=== PATIENT | male | born 1940 | race Caucasian/White ===

== ENCOUNTER 2022-08-21 13:02 | Inpatient (IN) | payer MEDICARE ==
[2022-08-21 14:29] LABS: #Basophils 0.1 thou/uL (0.0-0.2); #Eosinphils 0.3 thou/uL (0.0-0.7); #Monocytes 0.6 thou/uL (0.11-0.59); #Neutrophils 5.4 thou/uL (1.40-6.50); %Basophils 0.8 % (0.0-1.0); %Eosinophils 2.7 % (0.0-10.0); %Monocytes 6.2 % (0.0-10.0); %Neutrophils 55.8 % (42.0-75.0); Hemoglobin 12.8 g/dL (14.0-18.0); Mean Corpuscular HGB CONC 30.9 g/dL (32.0-36.0); Mean Corpuscular Hemoglobin 29.6 pg (27.0-31.0); Mean Corpuscular Volume 95.6 fl (78.0-98.0); Mean Platelet Volume 10.3 fL (7.4-10.4); Platelet Count 210 10x3/uL (130-400); RBC Distribution Width 14.1 % (11.5-14.5); Red Blood Cell (RBC) Count 4.33 mill/uL (4.70-6.10); White Blood Cell (WBC) Count 9.7 10x3/uL (4.8-10.8)
[2022-08-21 14:53] LABS: ALT (SGPT) 18 U/L (8-55); AST (SGOT) 24 U/L (5-34); Albumin 3.7 g/dL (3.4-4.8); Alkaline Phosphatase 49 U/L (40-110); Anion Gap 13 mmol/L (10-20); BUN (Urea Nitrogen) 21 mg/dL (8.4-25.7); Bilirubin, Total 0.5 mg/dL (0.2-1.2); Calc. Creatinine Clearance 0 mL/min (70-130); Calcium 9.2 mg/dL (7.8-10.44); Carbon Dioxide 20 mmol/L (23-31); Chloride 107 mmol/L (98-107); Estimated GFR 69; Globulin 3.5 g/dL (2.4-3.5); Glucose 100 mg/dL (83-110); Potassium 4.3 mmol/L (3.5-5.1); Protein, Total 7.2 g/dL (5.8-8.1); Sodium 136 mmol/L (136-145)
[2022-08-21] MEDS ORDERED: Ondansetron PF 4 MG/2 ML Vial IVP PRN (17:47)
[2022-08-21] MEDS ORDERED: Calcium Carbonate 500 MG ChewTAB PO PRN (17:47)
[2022-08-21] MEDS ORDERED: Guaifenesin DM 100-10/5 ML UDCUP PO PRN (17:47)
[2022-08-21] MEDS ORDERED: Acetaminophen 325 MG TAB PO PRN (17:47)
[2022-08-21] MEDS: Sodium Chloride 0.9% 1,000 ML IV SCH (18:10)
[2022-08-21 18:16] LABS: Hemoglobin 12.2 g/dL (14.0-18.0)
[2022-08-21] MEDS: Gabapentin 300 MG CAP PO SCH (21:12)
[2022-08-21] MEDS: Donepezil HCl 10 MG TAB PO SCH (21:12)
[2022-08-21] MEDS: Simvastatin 10 MG TAB PO SCH (21:12)
[2022-08-22 00:44] VITALS: BMI 31.8
[2022-08-22 05:22] LABS: Hemoglobin 10.8 g/dL (14.0-18.0)
[2022-08-22 05:37] LABS: ALT (SGPT) 16 U/L (8-55); AST (SGOT) 20 U/L (5-34); Albumin 3.4 g/dL (3.4-4.8); Alkaline Phosphatase 42 U/L (40-110); Anion Gap 9 mmol/L (10-20); BUN (Urea Nitrogen) 17 mg/dL (8.4-25.7); Bilirubin, Total 0.6 mg/dL (0.2-1.2); Calc. Creatinine Clearance 86 mL/min (70-130); Calcium 8.5 mg/dL (7.8-10.44); Carbon Dioxide 24 mmol/L (23-31); Chloride 107 mmol/L (98-107); Estimated GFR 75; Globulin 2.9 g/dL (2.4-3.5); Glucose 99 mg/dL (83-110); Potassium 4.1 mmol/L (3.5-5.1); Protein, Total 6.3 g/dL (5.8-8.1); Sodium 136 mmol/L (136-145)
[2022-08-22] MEDS ORDERED: Carvedilol 3.125 MG TAB PO SCH (08:00)
[2022-08-22] MEDS: Tamsulosin HCl 0.4 MG CAP PO SCH (08:26)
[2022-08-22] MEDS: Gabapentin 300 MG CAP PO SCH ×3 (08:26→20:48)
[2022-08-22] MEDS ORDERED: Carvedilol 6.25 MG TAB PO SCH (16:00)
[2022-08-22] MEDS: Sodium Chloride 0.9% 1,000 ML IV SCH (16:07)
[2022-08-22 17:00] LABS: Hemoglobin 11.2 g/dL (14.0-18.0)
[2022-08-22] MEDS: Donepezil HCl 10 MG TAB PO SCH (20:48)
[2022-08-22] MEDS: Simvastatin 10 MG TAB PO SCH (20:52)
[2022-08-22] MEDS ORDERED: Melatonin 3 MG TAB PO SCH (21:00)
[2022-08-22 22:41] LABS: Hemoglobin 10.6 g/dL (14.0-18.0)
[2022-08-23 04:46] LABS: #Basophils 0.1 thou/uL (0.0-0.2); #Eosinphils 0.3 thou/uL (0.0-0.7); #Monocytes 0.8 thou/uL (0.11-0.59); #Neutrophils 5.2 thou/uL (1.40-6.50); %Basophils 0.6 % (0.0-1.0); %Lymphocytes 34.2 % (21.0-51.0); %Neutrophils 53.8 % (42.0-75.0); Hemoglobin 10.8 g/dL (14.0-18.0); Mean Corpuscular HGB CONC 32.4 g/dL (32.0-36.0); Mean Corpuscular Hemoglobin 29.7 pg (27.0-31.0); Mean Corpuscular Volume 91.5 fl (78.0-98.0); Mean Platelet Volume 9.8 fL (7.4-10.4); Platelet Count 193 10x3/uL (130-400); RBC Distribution Width 14.2 % (11.5-14.5); Red Blood Cell (RBC) Count 3.64 mill/uL (4.70-6.10); White Blood Cell (WBC) Count 9.7 10x3/uL (4.8-10.8)
[2022-08-23 05:08] LABS: Anion Gap 9 mmol/L (10-20); BUN (Urea Nitrogen) 18 mg/dL (8.4-25.7); Calc. Creatinine Clearance 84 mL/min (70-130); Calcium 8.6 mg/dL (7.8-10.44); Carbon Dioxide 25 mmol/L (23-31); Chloride 107 mmol/L (98-107); Estimated GFR 72; Glucose 97 mg/dL (83-110); Potassium 3.9 mmol/L (3.5-5.1); Sodium 137 mmol/L (136-145)
[2022-08-23] MEDS ORDERED: Carvedilol 3.125 MG TAB PO SCH (09:00)
[2022-08-23] MEDS: Gabapentin 300 MG CAP PO SCH ×2 (09:28→14:58)
[2022-08-23] MEDS: Tamsulosin HCl 0.4 MG CAP PO SCH (09:29)
[2022-08-23 12:54] VITALS: BP 90/51; TEMP 98.3
== END 2022-08-23 16:59 | disposition home or self-care (01) | DRG 378 ==
LOC: ERS 13:02 → ERHOLD 17:02 → 2NO 19:54 → OBSVTOIN 08-22 12:17
PROVIDERS: ADMIT Internal Medicine; ATTEND Internal Medicine
DX: K62.5 Hemorrhage of anus and rectum (principal); D62 Acute posthemorrhagic anemia; I48.20 Chronic atrial fibrillation, unspecified; I10 Essential (primary) hypertension; E11.9 Type 2 diabetes mellitus without complications; E78.5 Hyperlipidemia, unspecified; F03.90 Unspecified dementia, unspecified severity, without behavioral disturbance, psychotic disturbance, mood disturbance, and anxiety; Z80.49 Family history of malignant neoplasm of other genital organs; Z90.89 Acquired absence of other organs; Z87.442 Personal history of urinary calculi; Z79.01 Long term (current) use of anticoagulants; Z87.891 Personal history of nicotine dependence; Z82.49 Family history of ischemic heart disease and other diseases of the circulatory system; Z80.42 Family history of malignant neoplasm of prostate; C61 Malignant neoplasm of prostate
CPT/HCPCS: 36415; 36416; 80048; 80053; 83880; 84484; 85014; 85018; 85025; 85730; 86850; 86900; 86901; 93005; 96360; 96361; G0378; J7050

== ENCOUNTER 2023-02-04 15:03 | Outpatient (CLI) | payer MEDICARE ==
[2023-02-04 16:19] LABS: Hematocrit 38.9 % (38.8-50.0); Hemoglobin 12.4 g/dL (13.5-17.5); Mean Corpuscular HGB CONC 31.9 g/dL (32.0-36.0); Mean Corpuscular Hemoglobin 26.8 pg (27.0-33.0); Mean Platelet Volume 9.4 fl (7.4-10.4); Platelet Count 321 10x3/uL (150-450); RBC Distribution Width 17.7 % (11.5-14.5); Red Blood Cell (RBC) Count 4.63 10x6/uL (4.32-5.72); White Blood Cell (WBC) Count 13.3 10x3/uL (3.5-10.5)
[2023-02-04 16:30] LABS: Bilirubin Neg (Negative); Blood, Urine 250 (Negative); Clarity Cloudy (Clear); Glucose, Urine (Dipstick) Normal (Negative); Ketone, Urine Negative (Negative); Leukocyte 500 (Negative); Nitrite Negative (Negative); Protein, Urine (Dipstick) 100 mg/dl (Neg-Trace); Specific Gravity, Urine 1.025 (1.005-1.030); Urobilinogen Normal mg/dL (Less than 2)
[2023-02-04 16:34] LABS: PTT 28.5 sec (22.0-33.0); Prothrombin Time 10.4 sec (9.5-12.1)
[2023-02-04 16:38] LABS: Anion Gap 16 mmol/L (10-20); BUN (Urea Nitrogen) 22 mg/dL (8.4-25.7); Calc. Creatinine Clearance 0 mL/min (70-130); Calcium 9.1 mg/dL (7.8-10.44); Carbon Dioxide 24 mmol/L (23-31); Chloride 106 mmol/L (98-107); Estimated GFR 57; Glucose 103 mg/dL (83-110); Potassium 4.8 mmol/L (3.5-5.1); Sodium 141 mmol/L (136-145)
[2023-02-04 16:57] LABS: RBC/HPF 21-50 HPF (0-3); WBC/HPF Greater than 50 HPF (0-3)
[2023-02-04 16:59] LABS: Bacteria/HPF 3+ HPF (None Seen); Renal Epithelial 0-3 HPF (None Seen)
== END 2023-02-04 15:04 | disposition home or self-care (01) ==
LOC: LABBT 15:03
PROVIDERS: ATTEND Urology
DX: Z01.818 Encounter for other preprocedural examination (principal); N35.914 Unspecified anterior urethral stricture, male
CPT/HCPCS: 80048; 81001; 85027; 85610; 85730; 87086; 93005; 93010

== ENCOUNTER 2023-02-08 08:46 | Day surgery (SDC) | payer MEDICARE ==
[2023-02-04 15:47] VITALS: BMI 30.7
[2023-02-08] MEDS ORDERED: fentaNYL PF 100 MCG/2 ML SYRINGE ONE (12:01)
[2023-02-08] MEDS ORDERED: PROPOFOL 20 ML ONE (12:01)
[2023-02-08] MEDS ORDERED: Lidocaine 1% PF 5 ML VIAL ONE ×2 (12:02→12:47)
[2023-02-08] MEDS ORDERED: LevoFLOXacin 500 mg/D5W 100 ML BAG ONE (12:11)
[2023-02-08] MEDS ORDERED: Triamcinolone 40 MG/ML VIAL ONE (12:37)
[2023-02-08] MEDS ORDERED: PHENYLEPHRINE-NS 100 MCG/ML 10 ML SYRINGE ONE ×2 (12:47→12:54)
[2023-02-08] MEDS ORDERED: PROPOFOL 200 MG/20 ML VIAL ONE (12:47)
[2023-02-08] MEDS ORDERED: Ondansetron PF 4 MG/2 ML Vial ONE (13:02)
[2023-02-08] MEDS ORDERED: ePHEDrine Sulfate 50 MG/10 ML VIAL ONE (13:07)
[2023-02-08] MEDS ORDERED: Oxybutynin 5 MG TAB ONE (13:47)
[2023-02-08] MEDS ORDERED: Phenazopyridine HCl 100 MG TAB ONE (13:47)
== END 2023-02-08 14:55 | disposition home or self-care (01) ==
LOC: SDC 08:46
PROVIDERS: ATTEND Urology
PROC: 0T7D8ZZ Dilation of Urethra, Via Natural or Artificial Opening Endoscopic (ICD-10-PCS; principal; 2023-02-08)
DX: N35.812 Other bulbous urethral stricture, male (principal); N35.813 Other membranous urethral stricture, male; I10 Essential (primary) hypertension; E78.5 Hyperlipidemia, unspecified; I48.91 Unspecified atrial fibrillation
CPT/HCPCS: J1956; J2405; J2704; J3301

== ENCOUNTER 2024-01-28 08:03 | Inpatient (IN) | payer MEDICARE ==
[2024-01-28 10:54] LABS: #Basophils 0.04 10x3/uL (0.0-0.2); #Eosinophils Less than 0.03 10x3/uL (0.0-0.7); %Basophils 0.2 % (0.0-1.0); %Lymphocytes 5.7 % (21.0-51.0); %Monocytes 4.1 % (0.0-10.0); %Neutrophils 89.3 % (42.0-75.0); Hematocrit 43.6 % (42.0-52.0); Hemoglobin 14.1 g/dL (14.0-18.0); Mean Corpuscular HGB CONC 32.3 g/dL (32.0-36.0); Mean Corpuscular Hemoglobin 29.7 pg (27.0-31.0); Mean Platelet Volume 9.8 fL (7.4-10.4); Platelet Count 187 10x3/uL (130-400); RBC Distribution Width 13.3 % (11.5-14.5); Red Blood Cell (RBC) Count 4.74 mill/uL (4.70-6.10)
[2024-01-28 11:13] LABS: INR-International Normal Ratio 1.3; PTT 32.1 sec (22.9-36.1); Prothrombin Time 15.8 sec (12.0-14.7)
[2024-01-28 11:21] LABS: ALT (SGPT) 17 U/L (8-55); AST (SGOT) 24 U/L (5-34); Albumin 3.9 g/dL (3.4-4.8); Alkaline Phosphatase 53 U/L (40-110); Anion Gap 15 mmol/L (10-20); BUN (Urea Nitrogen) 21 mg/dL (8.4-25.7); Bilirubin, Total 0.7 mg/dL (0.2-1.2); Calc. Creatinine Clearance 0 mL/min (70-130); Calcium 9.2 mg/dL (7.8-10.44); Carbon Dioxide 21 mmol/L (23-31); Chloride 107 mmol/L (98-107); Estimated GFR 46; Globulin 4.3 g/dL (2.4-3.5); Glucose 140 mg/dL (83-110); Potassium 4.4 mmol/L (3.5-5.1); Protein, Total 8.2 g/dL (5.8-8.1); Sodium 139 mmol/L (136-145)
[2024-01-28] MEDS ORDERED: Insulin Lispro 100 UNIT/ML 10 ML VIAL SC PRN (11:43)
[2024-01-28] MEDS ORDERED: Glucagon 1 MG/ML KIT IM PRN (11:43)
[2024-01-28] MEDS ORDERED: Dextrose 5% in Water 1,000 ML IV PRN (11:43)
[2024-01-28] MEDS ORDERED: Dextrose 50% Abboject 50 ML SYRINGE SLOW IVP PRN (11:43)
[2024-01-28 12:56] VITALS: BMI 27.1
[2024-01-28 14:16] LABS: Bacteria/HPF 1+ HPF (None Seen); Bilirubin Negative (Negative); Blood, Urine 3+ (Negative); CAUTI Indications for Culture Acute Hematuria; Clarity Clear (Clear); Glucose, Urine (Dipstick) Normal (Negative); Ketone, Urine Negative (Negative); Leukocyte 75 Leu/uL (Negative); Nitrite Negative (Negative); Protein, Urine (Dipstick) Negative (Neg-Trace); RBC/HPF Greater than 50 HPF (0-3); Specific Gravity, Urine 1.001 (1.002-1.036); Squamous Epithelial None Seen HPF (0-3); Urobilinogen Normal mg/dL (Less than 2); WBC/HPF 21-50 HPF (0-3); pH, Urine 5.5 (5.0-9.0)
[2024-01-28 14:17] LABS: Urine Culture Reflex Yes Yes
[2024-01-28] MEDS: Acetaminophen 500 MG TAB PO PRN (18:02)
[2024-01-28] MEDS: cefTRIAXone\\ROCEPHIN 1 GM in Sodium Chloride 0.9% 100 ML IVPB SCH (18:04)
[2024-01-28] MEDS: Gabapentin 300 MG CAP PO SCH (19:44)
[2024-01-28] MEDS: Melatonin 3 MG TAB PO SCH (19:44)
[2024-01-28] MEDS: Apixaban 5 MG TAB PO SCH (19:45)
[2024-01-28] MEDS: Senokot S 8.6-50 MG TAB PO SCH (19:45)
[2024-01-28] MEDS: Donepezil HCl 10 MG TAB PO SCH (19:45)
[2024-01-28] MEDS: Ascorbic Acid 500 mg Chewable Tablet PO SCH (19:45)
[2024-01-28] MEDS: Simvastatin 5 MG TAB PO SCH (19:46)
[2024-01-29 05:30] LABS: #Basophils 0.04 10x3/uL (0.0-0.2); %Basophils 0.3 % (0.0-1.0); %Eosinophils 0.3 % (0.0-10.0); %Lymphocytes 25.6 % (21.0-51.0); %Monocytes 7.4 % (0.0-10.0); Hemoglobin 12.6 g/dL (14.0-18.0); Mean Corpuscular HGB CONC 32.3 g/dL (32.0-36.0); Mean Corpuscular Hemoglobin 29.4 pg (27.0-31.0); Mean Corpuscular Volume 90.9 fL (78.0-98.0); Mean Platelet Volume 9.5 fL (7.4-10.4); Platelet Count 176 10x3/uL (130-400); RBC Distribution Width 13.9 % (11.5-14.5); Red Blood Cell (RBC) Count 4.29 mill/uL (4.70-6.10)
[2024-01-29 05:45] LABS: Anion Gap 14 mmol/L (10-20); BUN (Urea Nitrogen) 21 mg/dL (8.4-25.7); Calc. Creatinine Clearance 70 mL/min (70-130); Carbon Dioxide 23 mmol/L (23-31); Chloride 105 mmol/L (98-107); Estimated GFR 72; Glucose 130 mg/dL (83-110); Potassium 4.4 mmol/L (3.5-5.1); Sodium 138 mmol/L (136-145)
[2024-01-29] MEDS: Clopidogrel Bisulfate 75 MG TAB PO SCH (08:49)
[2024-01-29] MEDS: Multivitamin W/ Minerals 1 TAB PO SCH (08:49)
[2024-01-29] MEDS: Digoxin 0.125 MG TAB PO SCH (08:50)
[2024-01-29] MEDS ORDERED: Fluticasone Propionate Nasal Spray 16 gm Bottle NASAL PRN (09:00)
[2024-01-29 09:56] VITALS: BMI 27.1
[2024-01-29] MEDS ORDERED: LevoFLOXacin 750 MG TAB PO SCH (14:30)
[2024-01-29] MEDS: cefTRIAXone\\ROCEPHIN 1 GM in Sodium Chloride 0.9% 100 ML IVPB SCH (17:10)
[2024-01-30] MEDS ORDERED: LevoFLOXacin 750 MG TAB PO SCH (06:00)
[2024-01-30 07:05] LABS: #Basophils 0.06 10x3/uL (0.0-0.2); %Basophils 0.5 % (0.0-1.0); %Eosinophils 1.5 % (0.0-10.0); %Lymphocytes 31.6 % (21.0-51.0); %Monocytes 8.2 % (0.0-10.0); %Neutrophils 57.6 % (42.0-75.0); Hematocrit 38.5 % (42.0-52.0); Hemoglobin 12.5 g/dL (14.0-18.0); Mean Corpuscular HGB CONC 32.5 g/dL (32.0-36.0); Mean Corpuscular Hemoglobin 29.3 pg (27.0-31.0); Mean Corpuscular Volume 90.4 fL (78.0-98.0); Mean Platelet Volume 9.7 fL (7.4-10.4); Platelet Count 165 10x3/uL (130-400); RBC Distribution Width 13.8 % (11.5-14.5); Red Blood Cell (RBC) Count 4.26 mill/uL (4.70-6.10)
[2024-01-30 07:19] LABS: Anion Gap 11 mmol/L (10-20); BUN (Urea Nitrogen) 22 mg/dL (8.4-25.7); Calc. Creatinine Clearance 88 mL/min (70-130); Calcium 8.6 mg/dL (7.8-10.44); Carbon Dioxide 25 mmol/L (23-31); Chloride 104 mmol/L (98-107); Estimated GFR 87; Glucose 126 mg/dL (83-110); Potassium 4.1 mmol/L (3.5-5.1); Sodium 136 mmol/L (136-145)
[2024-01-30] MEDS: FLU (Fluad Triv) TS24-25 (65UP)/MF59C/PF 45 MCG/0.5 ML Syringe ONE (16:25)
[2024-01-30 16:36] VITALS: BP 116/66; TEMP 97.3
[2024-01-30] MEDS: FLU (Fluad Triv) TS24-25 (65UP)/MF59C/PF 45 MCG/0.5 ML Syringe IM ONE (16:39)
[2024-01-30] MEDS: LevoFLOXacin 750 MG TAB PO SCH (16:56)
== END 2024-01-30 17:03 | disposition home or self-care (01) | DRG 699 ==
LOC: ERS 08:03 → T4-B 12:31 → OBSVTOIN 01-29 12:11
PROVIDERS: ADMIT Internal Medicine; ATTEND Family Medicine
PROC: 0T7D7ZZ Dilation of Urethra, Via Natural or Artificial Opening (ICD-10-PCS; principal; 2024-01-28)
PROC: 0T7B7ZZ Dilation of Bladder, Via Natural or Artificial Opening (ICD-10-PCS; 2024-01-28)
PROC: 0T9B70Z Drainage of Bladder with Drainage Device, Via Natural or Artificial Opening (ICD-10-PCS; 2024-01-28)
PROC: 0TJB8ZZ Inspection of Bladder, Via Natural or Artificial Opening Endoscopic (ICD-10-PCS; 2024-01-28)
DX: N32.0 Bladder-neck obstruction (principal); I13.0 Hypertensive heart and chronic kidney disease with heart failure and stage 1 through stage 4 chronic kidney disease, or unspecified chronic kidney disease; I48.20 Chronic atrial fibrillation, unspecified; I50.32 Chronic diastolic (congestive) heart failure; I27.82 Chronic pulmonary embolism; N17.9 Acute kidney failure, unspecified; N39.0 Urinary tract infection, site not specified; N35.813 Other membranous urethral stricture, male; E78.5 Hyperlipidemia, unspecified; G47.33 Obstructive sleep apnea (adult) (pediatric); Z96.653 Presence of artificial knee joint, bilateral; R33.9 Retention of urine, unspecified; I35.0 Nonrheumatic aortic (valve) stenosis; E11.40 Type 2 diabetes mellitus with diabetic neuropathy, unspecified; N32.89 Other specified disorders of bladder; F03.90 Unspecified dementia, unspecified severity, without behavioral disturbance, psychotic disturbance, mood disturbance, and anxiety; C61 Malignant neoplasm of prostate; Z83.3 Family history of diabetes mellitus; Z82.49 Family history of ischemic heart disease and other diseases of the circulatory system; Z95.2 Presence of prosthetic heart valve; Z88.8 Allergy status to other drugs, medicaments and biological substances; Z79.899 Other long term (current) drug therapy; Z95.5 Presence of coronary angioplasty implant and graft; Z79.01 Long term (current) use of anticoagulants
CPT/HCPCS: 36415; 36416; 80048; 80053; 81001; 85025; 85610; 85730; 86850; 86900; 86901; 87077; 87086; 87186; 90653; 93005; 99284; J0696